=== PATIENT | female | born 1975 ===

== ENCOUNTER 2017-12-26 12:01 | Emergency (ER) | payer BC ==
[2017-12-26 12:09] VITALS: BP 148/89; PULSE 69; RESP 18; TEMP 98.4; O2SAT 69
--- NOTE | 2017-12-26 13:10 | C.PDOC ---
History Of Present Illness 42 y/o female presents to the ED complaining of 2 weeks of worsening low back pain. Denies any recent fall or blunt trauma. Patient reports PMHx of L4-5 herniated disc s/p surgical intervention years ago. She has had similar back pain on and off for the past few years, but this episodeit persistent. PAin is worse with movement. 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 Otherwise denies any fevers, nausea, vomiting, dysuria, hematuria, change in sensation or urinary/bowel incontinence. Patient has been taking a pain medication from the [facility] at home with transient relief. Also notes she h/o constipation, hasnt had BM in 5 days. Taking unknown medication for it without relief. 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 History/Exam Limitations: no limitations Onset/Duration Of Symptoms: Days Current Symptoms Are (Timing): Still Present Previous Symptoms: Back Pain, Prior Surgery Exacerbating Factor(s): Movement Past Medical History Reviewed: Historical Data, Nursing Documentation, Vital Signs Vital Signs: Last Vital Signs Temp 98.4 F 12/26/17 12:06 Pulse 69 12/26/17 12:06 Resp 18 12/26/17 12:06 BP 148/89 12/26/17 12:06 Pulse Ox 69 L 12/26/17 14:15 - Medical History PMH: Back Problems (herniated disc L4-5), HTN Surgical History: Back Surgery Family History: States: No Known Family Hx - Social History Hx Alcohol Use: Yes Hx Substance Use: No - Immunization History Hx Tetanus Toxoid Vaccination: Yes Hx Influenza Vaccination: Yes Hx Pneumococcal Vaccination: No Review Of Systems Except As Marked, All Systems Reviewed And Found Negative. Constitutional: Negative for: Fever, Chills Gastrointestinal: Positive for: Abdominal Pain Genitourinary: Negative for: Dysuria, Frequency, Incontinence, Hematuria Musculoskeletal: Positive for: Back Pain Neurological: Negative for: Weakness, Numbness Physical Exam - Physical Exam Appears: Non-toxic, No Acute Distress Skin: Normal Color, Warm, Dry Head: Atraumatic, Normacephalic Eye(s): bilateral: Normal Inspection, EOMI Nose: Normal Oral Mucosa: Moist Neck: Normal ROM, Supple Chest: Symmetrical Cardiovascular: Rhythm Regular Respiratory: Normal Breath Sounds, No Accessory Muscle Use, Other (speaking in full sentences) Gastrointestinal/Abdominal: Soft, No Tenderness, No Distention Back: No Vertebral Tenderness, Paraspinal Tenderness (to bilateral paralumbar regions) Extremity: Normal ROM Extremity: Bilateral: Atraumatic, Normal Color And Temperature, Normal ROM Pulses: Left Dorsalis Pedis: Normal, Right Dorsalis Pedis: Normal Neurological/Psych: Oriented x3, Normal Speech, Normal Sensation, Other (No focal deficits) Gait: Steady ED Course And Treatment O2 Sat by Pulse Oximetry: 69 - Other Rad ls X-Ray: Viewed By Me, Read By Radiologist Interpretation: Lumbar spine three views. History: Back pain. Comparison: None available. Findings: Mild levo scoliotic curvature of the lower lumbar spine. Moderate fecal retention in the colon. Prominent disc space narrowing with endplate sclerosis noted at the L4-5 level. Minimal retrolisthesis of L3 on L4 as well as L4 on L5. Mild multilevel anterior osteophytosis in the lower thoracic spine. Lower level facet hypertrophy. Impression: Degenerative changes. If pain persists, consider MRI. abdomen xr X-Ray: Viewed By Me, Read By Radiologist Interpretation: Abdomen single frontal view. History: Pain. Comparison: None available. Findings. Lower abdomen is excluded from this study. Moderate fecal retention in the colon. No evidence for gross obstruction. Prominent bibasilar breast shadows. Degenerative changes in the spine. Impression: Lower abdomen is excluded from this study. Moderate fecal retention in the colon. No evidence for gross obstruction. Prominent bibasilar breast shadows. Degenerative changes in the spine. Progress Note: Urine sent. Patient treated with PO Flexeril and IM Toradol. X- ray lumbar spine ordered and reviewed. On reassessment, patient resting comfortably, no longer having back pain, no fever, no bony tenderness, no numbness, no weakness, no abdominal pain. Patient is ambulatory in the emergency department with no discomfort. Pulse ox 98% . Patient was instructed to follow up with physician/clinic in 1-2 days for further evaluation or return to ED if symptoms persist or worsen. Disposition - Disposition Referrals: Esteban Hunt MD [Staff Provider] - Disposition: HOME/ ROUTINE Disposition Time: 14:12 Condition: STABLE Additional Instructions: Vaya a ramos mdkrishna o la clnica en 1-3 ayers sin falta, para mas evaluacin. [place] los medicamentos kelsey indicado. Volver a la amaris de emergencia en cualquier momento si los sntomas persisten o empeoran. Prescriptions: Cyclobenzaprine [Cyclobenzaprine HCl] 10 mg PO TID #20 tab Naproxen [Naprosyn] 1 tab PO BID PRN #20 tab PRN Reason: Pain Polyethylene Glycol 3350 [Miralax] 17 gm PO DAILY #1 ml Instructions: Low Back Pain (DC) Forms: 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 - Scribe Statement The provider has reviewed the documentation as recorded by the Scribe (Yumiko Whyte) All medical record entries made by the Scribe were at my direction and personally dictated by me. I have reviewed the chart and agree that the record accurately reflects my personal performance of the history, physical exam, medical decision making, and the department course for this patient. I have also personally directed, reviewed, and agree with the discharge instructions and disposition.
[2017-12-26 13:27] LABS: SQUAMOUS EPITHIAL < 1 /hpf (0-5); URINE BILIRUBIN NEGATIVE (NEGATIVE); URINE BLOOD NEGATIVE (NEGATIVE); URINE CLARITY Clear (Clear); URINE COLOR Yellow (YELLOW); URINE GLUCOSE (UA) NORMAL (Normal); URINE LEUKOCYTE ESTERASE NEG Leu/uL (Negative); URINE PROTEIN NEGATIVE (NEGATIVE); URINE UROBILINOGEN NORMAL mg/dL (0.2-1.0)
[2017-12-26 13:36] LABS: HCG,QUALITATIVE URINE NEGATIVE (NEGATIVE)
[2017-12-26] MEDS ORDERED: Magnesium Citrate Oral SOL (300 ml) PO ONE (14:16)
[2017-12-26] MEDS ORDERED: Magnesium Citrate Oral SOL (300 ml) ONE (14:35)
--- NOTE | 2017-12-26 15:47 | RAD ---
Abdomen single frontal view History: Pain. Comparison: None available. Findings Lower abdomen is excluded from this study. Moderate fecal retention in the colon. No evidence for gross obstruction. Prominent bibasilar breast shadows. Degenerative changes in the spine. Impression: Lower abdomen is excluded from this study. Moderate fecal retention in the colon. No evidence for gross obstruction. Prominent bibasilar breast shadows. Degenerative changes in the spine.
--- NOTE | 2017-12-26 15:57 | RAD ---
Lumbar spine three views History: Back pain. Comparison: None available. Findings: Mild levo scoliotic curvature of the lower lumbar spine. Moderate fecal retention in the colon. Prominent disc space narrowing with endplate sclerosis noted at the L4-5 level. Minimal retrolisthesis of L3 on L4 as well as L4 on L5. Mild multilevel anterior osteophytosis in the lower thoracic spine. Lower level facet hypertrophy. Impression: Degenerative changes. If pain persists, consider MRI.
== END 2017-12-26 14:43 | disposition home or self-care (01) ==
LOC: C.ER 12:01
DX: M54.5 Low back pain (principal); K59.00 Constipation, unspecified; I10 Essential (primary) hypertension
CPT/HCPCS: 72100; 74018; 81001; 84703; 96372; 99285; J1885